=== PATIENT | male | born 1995 | race Caucasian/White ===

== ENCOUNTER 2017-11-21 21:10 | Emergency (ER) | payer MEDICAID ==
[2017-11-21 21:23] VITALS: TEMP 98.1
[2017-11-21] MEDS ORDERED: SULFAMETHOX/TMP 800/160 MG 1 TAB PO ONE (21:44)
[2017-11-21] MEDS ORDERED: CEPHALEXIN 500 MG CAP PO ONE (21:44)
--- NOTE | 2017-11-21 21:49 | EDPHY ---
H & P Time Seen by Provider: 11/21/17 21:37 HPI/ROS: CHIEF COMPLAINT: Redness on the hand HISTORY OF PRESENT ILLNESS: 22-year-old male presents to the emergency department noting that he developed an area of redness, swelling, and discomfort on the palm of his left hand starting 3-4 days ago. He had noted a small "pimple" yesterday and picked at it. Since that time the area has become more swollen, red, and painful. He also notes some discomfort when he moves his fingers. No fevers or chills. No history of foreign body. REVIEW OF SYSTEMS: Aside from elements discussed in the HPI, a comprehensive 10-point review of systems was reviewed and is negative. PAST MEDICAL HISTORY: Asthma as a child. Eczema on the hands. SOCIAL HISTORY: Nonsmoker. GENERAL APPEARANCE: Pleasant, alert, no distress. FOCUSED EXAM OF left hand: There is a 4 cm x 4 cm slightly swollen, slightly erythematous area on the palmar surface of the left hand. In the center of this area there is a vesicle site which has been unroofed. No purulence. No abscess is palpated. There is tenderness at the center of the area of redness but no fluctuance. Patient denies any concern for foreign body. Full range of motion at all fingers. No swelling or erythema onto the fingers or wrist. Neurovascular exam: Good capillary refill, normal motor exam, normal neurologic exam. Smoking Status: Never smoked Constitutional: Initial Vital Signs Temperature (C) 36.7 C 11/21/17 21:20 Heart Rate 119 H 11/21/17 21:20 Respiratory Rate 20 11/21/17 21:20 Blood Pressure 139/90 H 11/21/17 21:20 O2 Sat (%) 99 11/21/17 21:20 O2 Delivery Mode Room Air Allergies/Adverse Reactions: No Known Allergies Allergy (Verified 08/05/12 14:35) Home Medications: Medication Instructions Recorded Cephalexin [Keflex (RX)] 500 mg PO QID 7 Days cap 11/21/17 Flucinonide 0.05% Ointment 11/21/17 Sulfamethox/Tmp 800/160 mg 1 tab PO BID #14 tab 11/21/17 [Bactrim Ds] ED Images - Extremities Hands Front Left/Right: 1 - slight swelling, erythema 2 - site of vesicle which patient unroofed himself MDM/Departure - MDM Medications Given: Discontinued Medications Cephalexin HCl (Keflex) 500 mg PO EDNOW ONE PRN Reason: Protocol Stop: 11/21/17 21:45 Last Admin: 11/21/17 21:49 Dose: 500 mg Trimethoprim/Sulfamethoxazole (Bactrim Ds) 1 ea PO EDNOW ONE PRN Reason: Protocol Stop: 11/21/17 21:45 Last Admin: 11/21/17 21:49 Dose: 1 ea ED Course/Re-evaluation: Suspect early cellulitis on the palmar aspect of the left hand. Patient does have some discomfort when extending the fingers, but no swelling of the fingers , tenderness along the flexor sheath, pain with passive range of motion, pallor of the fingers, or fever. He was placed on both Keflex and Bactrim to cover for deep space abscess and cellulitis. We held a long discussion concerning the importance of taking the antibiotics and watching closely for any worsening erythema or discomfort. I do not believe the patient has an area of abscess at the current time which should be I indeed. He was however warned that if the erythema worsened or the pain worsens he should return and at that time incision and drainage may be needed. He was referred to Hand surgery. Note, patient was quite anxious when he presented to the emergency department and was noted to have a heart rate of 119. This was rechecked and was 98 at discharge. Differential Diagnosis: Differential diagnoses for the patient's symptom complex was considered including but not limited to palmar infection, retained foreign body, MRSA, cellulitis. - Depart Disposition: Home, Routine, Self-Care Clinical Impression: palmar infection, Cellulitis Condition: Good Instructions: Cellulitis (ED), Abscess (ED) Additional Instructions: Please take antibiotics as directed. Keflex 500 mg by mouth 4 times a day as well as Bactrim 1 tablet by mouth 2 times a day. Take both these medications for 7 days. We have outlined the area of redness and swelling on the palm. Please watch to be sure that the redness and swelling does not spread outside this area. Return to the emergency department if you develop any fever or increased pain when moving your fingers. Return to the emergency department if the swelling and redness is increasing significantly beyond the area marked. Return to the emergency department if you start to notice the central area coming to a head or having drainage. You need to follow up with a hand surgeon to be sure that your are infection is clearing. For your discomfort, please take ibuprofen 600 mg every 8 hr with food. Prescriptions: Cephalexin [Keflex (RX)] 500 mg PO QID 7 Days cap Sulfamethox/Tmp 800/160 mg [Bactrim Ds] 1 tab PO BID #14 tab Referrals: NONE *PRIMARY CARE P,. [Primary Care Provider] - As per Instructions Sally Shankar MD [Medical Doctor] - As per Instructions (Please contact Dr. Shankar's office and make an appointment for early this week.)
[2017-11-21 22:03] VITALS: BP 125/68; PULSE 98; RESP 18; O2SAT 97
== END 2017-11-21 22:03 | disposition home or self-care (01) ==
LOC: CED 21:10
DX: L03.114 Cellulitis of left upper limb (principal); J45.909 Unspecified asthma, uncomplicated

== ENCOUNTER 2018-12-24 18:11 | Emergency (ER) | payer MEDICAID ==
--- NOTE | 2018-12-24 18:40 | EDPHY ---
H & P Stated Complaint: right 5th finger infection since wednesday . swollen now Time Seen by Provider: 12/24/18 18:21 HPI/ROS: CHIEF COMPLAINT: Finger infection HISTORY OF PRESENT ILLNESS: Patient is a 23-year-old man with no previous medical history who comes to the emergency department complaining of swelling in pain to distal right 5th finger. He and his mom also report that he had an abscess on his back that ruptured spontaneously about a week ago and has been draining since. He has not had a fever. He has had previous abscesses. He is not currently on any medications. He does not have a primary care doctor. Severity: Moderate Modifying factors: None REVIEW OF SYSTEMS: Constitutional: denies: chills, fever, recent illness, recent injury EENTM: denies: blurred vision, double vision, nose congestion Respiratory: denies: cough, shortness of breath Cardiac: denies: chest pain, irregular heart rate, lightheadedness, palpitations Gastrointestinal/Abdominal: denies: abdominal pain, diarrhea, nausea, vomiting, blood streaked stools Genitourinary: denies: dysuria, frequency, hematuria, pain Musculoskeletal: denies: joint pain, muscle pain Skin: denies: lesions, rash, jaundice, bruising Neurological: denies: headache, numbness, paresthesia, tingling, dizziness, weakness Hematologic/Lymphatic: denies: blood clots, easy bleeding, easy bruising Immunologic/allergic: denies: HIV/AIDS, transplant 10 systems reviewed and negative except as noted EXAM: GENERAL: Well-appearing, well-nourished and in no acute distress. HEAD: Atraumatic, normocephalic. EYES: Pupils equal round and reactive to light, extraocular movements intact, sclera anicteric, conjunctiva are normal. ENT: TMs normal, nares patent, oropharynx clear without exudates. Moist mucous membranes. NECK: Normal range of motion, supple without lymphadenopathy or JVD. LUNGS: Breath sounds clear to auscultation bilaterally and equal. No wheezes rales or rhonchi. HEART: Regular rate and rhythm without murmurs, rubs or gallops. ABDOMEN: Soft, nontender, normoactive bowel sounds. No guarding, no rebound. No masses appreciated. BACK: Draining abscess below left shoulder blade. No erythema. Mild purulent drainage. Minimally tender. EXTREMITIES: Right 5th finger with Phalen on fat pad. No nail involvement. No visible joint involvement. Minimal surrounding swelling. Mild erythema. Normal range of motion, no pitting or edema. No clubbing or cyanosis. NEUROLOGICAL: Cranial nerves II through XII grossly intact. Normal speech, normal gait. 5/5 strength, normal movement in all extremities, normal sensation , normal reflexes PSYCH: Normal mood, normal affect. SKIN: Warm, dry, normal turgor, no visible rashes or lesions. Source: Patient, Family - Personal History Current Tetanus/Diphtheria Vaccine: No Current Tetanus Diphtheria and Acellular Pertussis (TDAP): No - Medical/Surgical History Hx Asthma: No Hx Chronic Respiratory Disease: No Hx Diabetes: No Hx Cardiac Disease: No Hx Renal Disease: No Hx Cirrhosis: No Hx Alcoholism: No Hx HIV/AIDS: No Hx Splenectomy or Spleen Trauma: No Other PMH: asthma as child, dental surgeries, R wrist surgery - Family History Significant Family History: No pertinent family hx - Social History Smoking Status: Never smoked Alcohol Use: None Constitutional: Initial Vital Signs Temperature (C) 37.3 C 12/24/18 18:17 Heart Rate 105 H 12/24/18 18:17 Respiratory Rate 18 12/24/18 18:17 Blood Pressure 158/99 H 12/24/18 18:17 O2 Sat (%) 97 12/24/18 18:17 O2 Delivery Mode Room Air Allergies/Adverse Reactions: No Known Allergies Allergy (Verified 12/24/18 18:15) Home Medications: Medication Instructions Recorded Cephalexin [Keflex (RX)] 500 mg PO QID 7 Days cap 11/21/17 Flucinonide 0.05% Ointment 11/21/17 Sulfamethox/Tmp 800/160 mg 1 tab PO BID #14 tab 11/21/17 [Bactrim Ds] Sulfamethox/Tmp 800/160 mg 1 tab PO BID #14 tab 12/24/18 [Bactrim Ds] metFORMIN HCL [Metformin HCl] 500 mg PO BID #20 tablet 12/24/18 Medical Decision Making Procedures: Procedure: Abscess drainage. The patient's abscess was located on the right finger. I obtained verbal consent from the patient to drain the abscess who was informed about the possibility of bleeding and pain. The abscess was incised with 11 blade scalpel and 2 cc of purulent drainage was expressed. I irrigated the wound and placed some packing. The patient tolerated the procedure well. The procedure was performed by myself. ED Course/Re-evaluation: I checked a fingerstick blood sugar on the patient and is 392. Will send a chemistry to the lab. He does not complain of systemic symptoms. This is a new diagnosis of diabetes for random blood glucose greater than 200. I will page the primary care physician on-call for follow-up and also recommendations until follow-up. Will start on Bactrim for the multiple abscesses. Discussed cleansing with chlorhexidine or bleach with mom. Mom states that she has also had abscesses in the past. 7:10 p.m. the patient tolerated drainage well. Dodson drain left in place. Was give initial dose of metformin and Bactrim here in the department and prescriptions for more. I discussed the case with Dr. Morrison who recommends starting metformin 500 twice daily and following up in their office on Wednesday or Wednesday. Differential Diagnosis: Partial list of the Differential diagnosis considered include but were not limited to; abscess, felon, diabetes and although unlikely based on the history and physical exam, I also considered sepsis, DKA. - Data Points Laboratory Results: Laboratory Results 12/24/18 18:45 12/24/18 12/24/18 18:45 18:30 Sodium 137 mEq/L mEq/L (135-145) Potassium 4.3 mEq/L mEq/L (3.5-5.2) Chloride 100 mEq/L mEq/L (97-110) Carbon Dioxide 24 mEq/l mEq/l (22-31) Anion Gap 13 mEq/L mEq/L (6-14) BUN 14 mg/dL mg/dL (7-23) Creatinine 0.6 mg/dL L mg/dL (0.7-1.3) Estimated GFR > 60 Glucose 414 mg/dL H mg/dL (70-100) POC Glucose 392 mg/dL H mg/dL (70-100) Calcium 9.4 mg/dL mg/dL (8.5-10.4) Medications Given: Discontinued Medications Hydrocodone Bitart/Acetaminophen (Verdon 5/325mg Prepack#6) 1 btl TAKEHOME EDNOW ONE Stop: 12/24/18 20:48 Last Admin: 12/24/18 20:48 Dose: 1 btl Metformin HCl (Glucophage Xr) 500 mg PO ONCE ONE Stop: 12/24/18 19:11 Last Admin: 12/24/18 20:49 Dose: Not Given Trimethoprim/Sulfamethoxazole (Bactrim Ds) 1 ea PO EDNOW ONE PRN Reason: Protocol Stop: 12/24/18 19:02 Last Admin: 12/24/18 20:36 Dose: 1 ea Point of Care Test Results: Chemistry 12/24/18 18:30 POC Glucose 392 mg/dL H mg/dL (70-100) Departure - Departure Disposition: Home, Routine, Self-Care Clinical Impression: Back abscess, Felon of finger of right hand Diabetes Qualifiers: Diabetes mellitus type: type 2 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 Morrison and he or one of his partners would like to see you in his office Wednesday or Wednesday. Referrals: Godwin Morrison MD [Medical Doctor] - 1-2 days without fail Jose M Martinez DO [Medical Doctor] - As per Instructions Stand Alone Forms: Work Excuse Prescriptions: metFORMIN HCL [Metformin HCl] 500 mg PO BID #20 tablet Sulfamethox/Tmp 800/160 mg [Bactrim Ds] 1 tab PO BID #14 tab
[2018-12-24] MEDS ORDERED: SULFAMETHOX/TMP 800/160 MG 1 TAB PO ONE (19:01)
[2018-12-24] MEDS ORDERED: metFORMIN SR 500 MG TAB PO ONE (19:10)
[2018-12-24 20:38] VITALS: BP 159/86
[2018-12-24] MEDS ORDERED: HYDROCOD/APAP 5/325 PREPACK#6 BTL TAKEHOME ONE ×2 (20:46→20:47)
== END 2018-12-24 21:08 | disposition home or self-care (01) ==
LOC: CED 18:11
PROC: 0P9T3ZZ Drainage of Right Finger Phalanx, Percutaneous Approach (ICD-10-PCS; principal; 2018-12-24)
DX: L02.511 Cutaneous abscess of right hand (principal); E11.628 Type 2 diabetes mellitus with other skin complications
CPT/HCPCS: 99284-ER

== ENCOUNTER 2018-12-26 17:06 | Emergency (ER) | payer MEDICAID ==
--- NOTE | 2018-12-26 17:23 | EDPHY ---
H & P Time Seen by Provider: 12/26/18 17:16 HPI/ROS: CHIEF COMPLAINT: Wound check HISTORY OF PRESENT ILLNESS: Patient is a 23-year-old man who I saw 2 days ago with a draining abscess on his back in a new abscess/felon and is right little finger. It was incised and drained and a Kirwin drain placed in the wound. He is here today for drain removal. He also was diagnosed on Wednesday with a new diagnosis of diabetes. He is on metformin and is following up with a primary care provider tomorrow. He and his mom states that overall his wounds have improved significantly. His back abscess is no longer draining spontaneously. He has not been febrile. His finger has decreased in swelling. Severity: Moderate Modifying factors: None REVIEW OF SYSTEMS: Constitutional: denies: chills, fever, recent illness, recent injury EENTM: denies: blurred vision, double vision, nose congestion Respiratory: denies: cough, shortness of breath Cardiac: denies: chest pain, irregular heart rate, lightheadedness, palpitations Gastrointestinal/Abdominal: denies: abdominal pain, diarrhea, nausea, vomiting, blood streaked stools Genitourinary: denies: dysuria, frequency, hematuria, pain Musculoskeletal: denies: joint pain, muscle pain Skin: See HPI Neurological: denies: headache, numbness, paresthesia, tingling, dizziness, weakness Hematologic/Lymphatic: denies: blood clots, easy bleeding, easy bruising Immunologic/allergic: denies: HIV/AIDS, transplant 10 systems reviewed and negative except as noted EXAM: GENERAL: Well-appearing, well-nourished and in no acute distress. HEAD: Atraumatic, normocephalic. EYES: Pupils equal round and reactive to light, extraocular movements intact, sclera anicteric, conjunctiva are normal. ENT: TMs normal, nares patent, oropharynx clear without exudates. Moist mucous membranes. NECK: Normal range of motion, supple without lymphadenopathy or JVD. LUNGS: Breath sounds clear to auscultation bilaterally and equal. No wheezes rales or rhonchi. HEART: Regular rate and rhythm without murmurs, rubs or gallops. ABDOMEN: Soft, nontender, normoactive bowel sounds. No guarding, no rebound. No masses appreciated. BACK: No CVA tenderness, no spinal tenderness, step-offs or deformities EXTREMITIES: Normal range of motion, no pitting or edema. No clubbing or cyanosis. NEUROLOGICAL: Cranial nerves II through XII grossly intact. Normal speech, normal gait. 5/5 strength, normal movement in all extremities, normal sensation , normal reflexes PSYCH: Normal mood, normal affect. SKIN: Abscesses both improved in size and no more purulent drainage. Source: Patient, Family Exam Limitations: No limitations - Medical/Surgical History Hx Asthma: No Hx Chronic Respiratory Disease: No Hx Diabetes: No Hx Cardiac Disease: No Hx Renal Disease: No Hx Cirrhosis: No Hx Alcoholism: No Hx HIV/AIDS: No Hx Splenectomy or Spleen Trauma: No Other PMH: Diabetes, asthma as child, dental surgeries, R wrist surgery - Family History Significant Family History: No pertinent family hx - Social History Smoking Status: Never smoked Alcohol Use: None Constitutional: Initial Vital Signs Temperature (C) 37.2 C 12/26/18 17:15 Heart Rate 109 H 12/26/18 17:15 Respiratory Rate 20 12/26/18 17:15 Blood Pressure 156/109 H 12/26/18 17:15 O2 Sat (%) 96 12/26/18 17:15 O2 Delivery Mode Room Air Allergies/Adverse Reactions: No Known Allergies Allergy (Verified 12/26/18 17:40) Home Medications: Medication Instructions Recorded Sulfamethox/Tmp 800/160 mg 1 tab PO BID #14 tab 12/24/18 [Bactrim Ds] metFORMIN HCL [Metformin HCl] 500 mg PO BID #20 tablet 12/24/18 Medical Decision Making ED Course/Re-evaluation: Patient's abscesses have improved. The Shana drain was removed in his finger was redressed. He has follow-up with his primary tomorrow for management of his new diagnosis of diabetes. He is not having any systemic symptoms. He and his mom declined further workup or testing at this time. Differential Diagnosis: Partial list of the Differential diagnosis considered include but were not limited to; abscess, wound check, dressing change, diabetes and although unlikely based on the history and physical exam, I also considered sepsis, DKA, electrolyte, tenosynovitis. Departure - Departure Disposition: Home, Routine, Self-Care Clinical Impression: Abscess, Wound check, abscess Condition: Fair Instructions: Abscess Follow-up (ED) Additional Instructions: follow up as scheduled and have Dr Morrison's office guide you on wound care follow up after they check the wound. Remember to let them know your Blood pressure has been elevated the two visits dubois have been here. 156/109 return to Emergency department for any new complaints worsening wound, infection , or other concerns. Referrals: Godwin Morrison MD [Medical Doctor] - 1 day, if not improved
[2018-12-26 17:40] VITALS: BP 156/109
== END 2018-12-26 17:50 | disposition home or self-care (01) ==
LOC: CED 17:06
DX: Z48.03 Encounter for change or removal of drains (principal); E11.9 Type 2 diabetes mellitus without complications; Z79.899 Other long term (current) drug therapy
CPT/HCPCS: 99282-ER